=== PATIENT | female | born 1990 | race Caucasian/White ===

== ENCOUNTER 2017-10-12 12:33 | Observation (INO) | payer BC ==
--- NOTE | 2017-10-12 14:53 | GHP ---
[f rep st] HISTORY AND PHYSICAL DATE OF ADMISSION: 10/12/2017 ADMITTING DIAGNOSES: 1. Intrauterine at 37 weeks. 2. Premature rupture of membranes. HISTORY OF PRESENT ILLNESS: Kailey is a 26-year-old 2, para 1-0-0-1 at 37 weeks with an estimated due date 11/01/2017, by last menstrual period 01/20/2017, consistent with first trimester ultrasound at 7 weeks. The patient presents to the hospital with complaints of leakage of fluid noted a round 5 o' clock this morning. States fluid is clear without an odor. She continues to have leakage of fluid. Denies any bleeding. The patient denies any cramping or contractions earlier today and no since ambulating for the last 2 hours has noticed some painful contractions. States there is good movement. The patient has good care at [facility], and presented in her first trimester. is pretty much uncomplicated. She has a paternal cousin with down syndrome, but had normal genetic screening results. Varicella is non-immune. She did receive TDAP in the . GBS culture is negative. OBSTETRICAL HISTORY: In July of 2014, delivered a viable female at 40 weeks 2 days, via spontaneous vaginal delivery, weighing 3,612 g. FRICKERTRON CHECKER HISTORY: The patient has history of oral contraceptive pill use in the past. She has a history of abnormal Pap smear about 8 years ago which was mildly abnormal, required no followup treatments. She did have a negative Pap smear as well as chlamydia and gonorrhea cultures in March 2017. The patient denies a history of any exposure to sexually transmitted diseases. CURRENT MEDICATIONS: vitamin. ALLERGIES: No known drug allergies. PAST MEDICAL HISTORY: Significant for grand mal seizures in childhood between age 6 and 11, none since age 11. PAST SURGICAL HISTORY: Significant for tonsillectomy and wisdom teeth removal. FAMILY HISTORY: Paternal grandfather due to heart disease. Brother with testicular cancer. Sister with seizure disorder during childhood and paternal cousin with Down syndrome. SOCIAL HISTORY: The patient lives with her and their daughter. 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 Denies any alcohol, tobacco, or illicit drug use. REVIEW OF SYSTEMS: Ten-point review of systems is negative. Pertinent positives noted in HPI. LABS: Blood type A positive, antibody negative. RPR nonreactive. Rubella immune. Hepatitis B surface antigen negative. HIV negative. Trio screen negative December 2013. Innatal screen negative. Single AFP negative. H and H 13.2 and 37.6. One-hour Glucola 97. GBS culture is negative. PHYSICAL EXAMINATION: VITAL SIGNS: On admission vital signs are stable, patient is afebrile. GENERAL: The patient is alert and oriented x3. Well- nourished, well-developed female, no apparent distress. CARDIOVASCULAR: Regular rate and rhythm. LUNGS: Clear to auscultation bilaterally. ABDOMEN: Gravid, soft, nontender, nondistended. PELVIC: On exam, patient is found to be 1-2 cm, 70% effaced, -3 station, posterior, cephalic. Patient was seen on L& D about 3 hours ago and Amnisure was noted to be positive and she was 1 cm dilated, very posterior. heart tones are Category 1, with baseline of 130 beats per minute. Positive accelerations, no decelerations, moderate variability. There are irregular contractions on toco. ASSESSMENT/PLAN: Patient is a 26-year-old 2, para 1-0-0-1 at 37 weeks who presents with premature rupture of membranes. 1. Admit to labor and delivery for expectant management. 2. Will have patient continue to ambulate and if no regular contractions or cervical change, will start Pitocin per protocol. 3. Group B Strep is negative, no prophylactic antibiotics are needed. 4. Patient is afebrile at this time, ruptured x 13 hours now. Will continue to monitor closely. /[id number]/MODL MTDD
== END 2017-10-12 13:53 | disposition home or self-care (01) ==
LOC: FLD 12:33
PROVIDERS: ADMIT Obstetrics & Gynecology; ATTEND Obstetrics & Gynecology
DX: O42.92 Full-term premature rupture of membranes, unspecified as to length of time between rupture and onset of labor (principal); Z3A.37 37 weeks gestation of pregnancy
CPT/HCPCS: 59025; G0378

== ENCOUNTER 2017-10-12 17:04 | Inpatient (IN) | payer BC ==
[2017-10-12] MEDS ORDERED: LIDOCAINE 1% 300 MG/30 ML SDV SC PRN (18:12)
[2017-10-12] MEDS ORDERED: TERBUTALINE SULFATE 1 MG/ML VIAL IV PRN (18:12)
[2017-10-12] MEDS ORDERED: OLIVE OIL 118 ML BTL MISC PRN (18:12)
[2017-10-12] MEDS ORDERED: EPSOM SALT 454 GM TP PRN (18:12)
[2017-10-12] MEDS ORDERED: MISOPROSTOL 200 MCG TAB PO PRN (18:12)
[2017-10-12] MEDS ORDERED: OXYTOCIN/RINGERS LACTATE 1,000 ML IV PRN (18:12)
[2017-10-12] MEDS ORDERED: AMMONIA AROMATIC 1 EACH AMP IH PRN (18:12)
[2017-10-12] MEDS ORDERED: IBUPROFEN 600 MG TAB PO PRN (18:12)
[2017-10-12] MEDS ORDERED: LR 500 ML IV PRN (18:13)
[2017-10-12] MEDS ORDERED: LIDOCAINE 1% 300 MG/30 ML SDV ONE (18:18)
[2017-10-12] MEDS ORDERED: OLIVE OIL 118 ML BTL ONE (18:18)
[2017-10-12] MEDS ORDERED: OXYTOCIN 10 UNIT/ML VIAL ONE (18:19)
[2017-10-12] MEDS ORDERED: AMMONIA AROMATIC 1 EACH AMP IH ONE (18:19)
[2017-10-12] MEDS ORDERED: MISOPROSTOL 200 MCG TAB ONE (18:19)
[2017-10-12] MEDS ORDERED: TERBUTALINE SULFATE 1 MG/ML VIAL ONE (18:19)
[2017-10-12] MEDS ORDERED: OXYTOCIN/RINGERS LACTATE 500 ML IV SCH (18:30)
[2017-10-12 19:57] LABS: PLATELET COUNT 172 10^3/uL (150-400)
[2017-10-12] MEDS: LR 1,000 ML IV PRN ×2 (20:27→21:10)
[2017-10-12] MEDS ORDERED: PHENYLEPHRINE HCL 100 MCG/ML SYR ONE (20:57)
[2017-10-12] MEDS ORDERED: fentaNYL 100 MCG/2 ML INJ ONE (20:57)
[2017-10-12] MEDS ORDERED: BUPIVACAINE 0.25% 30 ML SDV ONE (20:57)
[2017-10-12] MEDS ORDERED: fentaNYL 200 MCG, BUPIVACAINE 0.5% 20 ML in NS 100 ML EP SCH (21:00)
--- NOTE | 2017-10-12 21:33 | PREANESOB ---
Obstetric Pre-Anesthesia Info - General Info Proposed Procedure: PCEA : 2 Para: 2 RICKEY: 11/01/17 Gestational Age: 37 week(s) and 1 day(s) - Info Status: Full Term - Labor Status Cervical Dilation per last OB SVE: 2 Indications for Labor Analgesia: Pain Control Labor Epidural: Proposed Anesthesia Allergies/Adverse Reactions: Allergy/AdvReac Type Severity Reaction Status Date / Time No Known Allergies Allergy Unverified 10/12/17 19:27 Home Medications: Medication Instructions Recorded Docusate Sodium [Colace 100 MG (*)] 100 mg PO BID PRN #0 cap 08/03/14 Ibuprofen [Motrin (*)] 600 mg PO Q6 PRN #0 tab 08/03/14 Vit27&Calcium/Iron/FA 2 10/12/17 [] Visit Medications: Generic Name Dose Route Start Last Admin Trade Name Freq PRN Reason Stop Dose Admin Ammonia (Aromatic Spirit) 1 each 10/12/17 18:12 Ammonia Aromatic IH 10/22/17 18:11 ONCE PRN Fainting Lactated Ringer's 1,000 mls @ 0 mls/hr 10/12/17 18:12 10/12/17 21:10 Lr IV 10/13/17 18:11 1,000 mls PRN PRN Administration SEE PROTOCOL CONDITIONS Protocol Per Protocol Lactated Ringer's 500 mls @ 500 mls/hr 10/12/17 18:13 Lr IV 10/13/17 18:13 PRN PRN Maternal Hypotension Oxytocin/Lactated Ringer's 1,000 mls @ 2 mls/hr 10/12/17 18:12 Pitocin 20 Units/Lr (Premix) IV PRN PRN Post bleeding Oxytocin/Lactated Ringer's 500 mls @ 0 mls/hr 10/12/17 18:30 Pitocin 30 Units/Lr (Premix) IV 04/10/18 18:29 CONT ANA Protocol Per Protocol Fentanyl 200 mcg/ Bupivacaine 100 mls @ 0 mls/hr 10/12/17 21:00 10/12/17 21: 10 HCl 20 ml/ Sodium Chloride EP 10/22/17 20:59 100 mls CONT ANA Administration Protocol As Directed Ibuprofen 600 mg 10/12/17 18:12 Motrin PO 04/10/18 18:11 Q6HRS PRN post , inflammation Lidocaine HCl 300 mg 10/12/17 18:12 Lidocaine Hcl 1% SC 04/10/18 18:11 ONCE PRN episiotomy Magnesium Sulfate 454 gm 10/12/17 18:12 Epsom Salt TP 04/10/18 18:11 Q1H PRN perineal discomfort Misoprostol 800 - 1,000 mcg 10/12/17 18:12 Cytotec PO 04/10/18 18:11 ONCE PRN Vaginal Atony/Bleeding [place] Oil 118 ml 10/12/17 18:12 Sweet Oil MISC 04/10/18 18:11 ONCE PRN perineal massage Terbutaline Sulfate 0.25 mg 10/12/17 18:12 Brethine IV 04/10/18 18:11 ONCE PRN Tachysystole Discontinued Medications Generic Name Dose Route Start Last Admin Trade Name Freq PRN Reason Stop Dose Admin Ammonia (Aromatic Spirit) Confirm 10/12/17 18:19 Ammonia Aromatic Administered 10/12/17 18:20 Dose 1 each IH .STK-MED ONE Bupivacaine HCl Confirm 10/12/17 20:57 Sensorcaine 0.25% Sdv Administered 10/12/17 20:58 Dose 30 ml .ROUTE .STK-MED ONE Fentanyl Confirm 10/12/17 20:57 Sublimaze Administered 10/12/17 20:58 Dose 100 mcg .ROUTE .STK-MED ONE Lidocaine HCl Confirm 10/12/17 18:18 Lidocaine Hcl 1% Administered 10/12/17 18:19 Dose 300 mg .ROUTE .STK-MED ONE Misoprostol Confirm 10/12/17 18:19 Cytotec Administered 10/12/17 18:20 Dose 1,000 mcg .ROUTE .STK-MED ONE [place] Oil Confirm 10/12/17 18:18 Sweet Oil Administered 10/12/17 18:19 Dose 118 ml .ROUTE .STK-MED ONE Oxytocin Confirm 10/12/17 18:19 Pitocin Administered 10/12/17 18:20 Dose 40 unit .ROUTE .STK-MED ONE Phenylephrine HCl Confirm 10/12/17 20:57 Neosynephrine Administered 10/12/17 20:58 Dose 1,000 mcg .ROUTE .STK-MED ONE Terbutaline Sulfate Confirm 10/12/17 18:19 Brethine Administered 10/12/17 18:20 Dose 1 mg .ROUTE .STK-MED ONE - Anesthesia History Anesthesia & Operative History: No Prior Problems (Prior epidural without diff) - Vital Signs Height/Weight (Nursing): Height 170.18 cm Weight 71.668 kg - Focused Exam Neck exam: FROM Mallampati Score: Class 1 Mouth exam: normal dental/mouth exam Pulmonary: no respiratory distress Cardiovascular: regular rate and rhythym Labs: 10/12/17 19:44 Patient ABO/Rh A POSITIVE 10/12/17 19:44 - Plan Anesthetic Plan: PCEA Consent Signed and on Chart: Yes
--- NOTE | 2017-10-12 21:36 | POSTANESTH ---
Post Anesthetic Evaluation Cardiovascular Status: Similar to Pre-Op Cond Respiratory Status: Similar to Pre-op Cond. Level of Consciousness/Mental Status: Can Participate in Eval Pain Control: Adequate, Prn Tx Ordered Nausea/Vomiting Control: Adequate, Prn Tx Ordered Complications Possibly Related to Anesthesia: None Noted (Post epi placement. Procedure well tolerated with good pain control and PCEA stsarted)
[2017-10-12] MEDS ORDERED: LR 500 ML IV SCH (22:00)
[2017-10-13] MEDS ORDERED: ONDANSETRON 4 MG/2 ML VIAL IVP PRN (00:28)
[2017-10-13] MEDS ORDERED: SIMETHICONE 80 MG TAB CHEW PO PRN (02:00)
[2017-10-13] MEDS ORDERED: HYDROCORTISONE 0.5% CREAM TP PRN (02:00)
[2017-10-13] MEDS ORDERED: HYDROCODONE/APAP 5/325 TAB PO PRN (02:00)
--- NOTE | 2017-10-13 02:05 | OBDEL ---
Info Type: Vaginal Presentation at Delivery: Vertex L&D Analgesia/Anesthesia Type: Epidural GBS+: No Intrapartum Medications: Generic Name Dose Route Start Last Admin Trade Name Freq PRN Reason Stop Dose Admin Lactated Ringer's 1,000 mls @ 0 mls/hr 10/12/17 18:12 10/12/17 21:10 Lr IV 10/13/17 18:11 1,000 mls PRN PRN Administration SEE PROTOCOL CONDITIONS Protocol Per Protocol Oxytocin/Lactated Ringer's 500 mls @ 0 mls/hr 10/12/17 18:30 10/12/17 22:14 Pitocin 30 Units/Lr (Premix) IV 04/10/18 18:29 500 mls CONT ANA Administration Protocol Per Protocol Fentanyl 200 mcg/ Bupivacaine 100 mls @ 0 mls/hr 10/12/17 21:00 10/12/17 21: 10 HCl 20 ml/ Sodium Chloride EP 10/22/17 20:59 100 mls CONT ANA Administration Protocol As Directed - Hospital Course Intrapartum: 10/13/17 02:02 IUP @ 37 1/7 wks with PROM, ruptured > 12 hours, augmented with Pitocin; GBS neg. Indications for Delivery: SROM (PROM) Vaginal Delivery - Delivery Provider Delivery Physician/CNM: Debby Moses - Labor and Delivery Onset of Contractions Date: 10/12/17 Onset of Contractions Time: 15:30 Onset of Contractions Type: Augmented Rupture of Membranes Date: 10/12/17 Rupture of Membranes Time: 05:00 Rupture of Membranes Type: Premature Amniotic Fluid Color: Clear Dilation Complete Date: 10/12/17 Dilation Complete Time: 00:56 Placenta Delivery Date: 10/13/17 Placenta Delivery Time: 01:46 (Cord avulsed and manually assisted removal of placenta at cervix; bedside u/s confirmed no retained placenta) Total Hours of Labor: 10 Laceration: Other (Specify) (perineum intact) Vaginal Sponge Count Correct: Yes Vaginal Needle Count Correct: Yes Vaginal Sweep Performed: Yes EBL: 300 cc Delivery Events: None - Medications Labor Augmentation/Induction Methods Used: Pitocin Labor Augmentation/Induction Indication: Inadequate Ctx Strength (PROM > 12 hours) [place] Data RICKEY: 11/01/17 Gestational Age: 37 week(s) and 2 day(s) Vásquez Delivery Date: 04/30/18 Delivery Time: 01:38 Sex of : Male ("Shakir Donovan") Score (1 Min): 9 Score (5 Min): 9 ICD10 Worksheet Patient Problems: Problems Problem Status Onset (spontaneous vaginal delivery) Acute PROM with onset of labor within 24 hours, delivered, [facility] Acute
[2017-10-13] MEDS: IBUPROFEN 600 MG TAB PO PRN ×3 (08:46→21:03)
--- NOTE | 2017-10-13 10:13 | OBPP ---
Progress Note Assessment/Plan: Assessment: 26 y/o PPD #1 s/p doing well, Plan: Routine PPC, support. D/c home tomorrow. 10/13/17 10:12 Subjective/ Course: 10/13/17 10:10 Pt is doing well today. She had significant cramping, much better now after Ibuprofen. She is ambulating and voiding well and has min lochia. Breast feeding is going well and baby is doing well. Objective: 10/12/17 19:44 Patient ABO/Rh A POSITIVE 10/12/17 19:44 Temp Pulse Resp BP Pulse Ox 37.1 C 65 16 114/55 L 10/13/17 05:03 10/13/17 05:03 10/13/17 05:03 10/13/17 05:03 Uterine Position/Fundal Height: Umbilicus -3 Uterine Tone: Firm Physical Exam - Physical Exam General Appearance: alert, no apparent distress Neck: non-tender, full range of motion, supple Respiratory: chest non-tender, lungs clear, normal breath sounds Cardiac/Chest: regular rate, rhythm Abdomen: normal bowel sounds Extremities: swelling (no), Citlali's sign (neg)
[2017-10-13] MEDS: DOCUSATE SODIUM 100 MG CAP PO PRN ×2 (12:00→21:03)
[2017-10-14] MEDS: IBUPROFEN 600 MG TAB PO PRN (05:26)
--- NOTE | 2017-10-14 09:14 | POSTANESTH ---
Post Anesthetic Evaluation Cardiovascular Status: Normal, Stable Respiratory Status: Normal, Stable Level of Consciousness/Mental Status: Can Participate in Eval, Alert and Oriented Complications Possibly Related to Anesthesia: None Noted (Pt denies RODRIGUEZ, back pain, point tenderness on back at epidural site. Pt ambulating well.)
[2017-10-14] MEDS: DOCUSATE SODIUM 100 MG CAP PO PRN (09:33)
--- NOTE | 2017-10-14 09:43 | OBGCSDC ---
General Delivery Information - General Info : 2 Para: 2 Abortions: 0 Type: Vaginal L&D Analgesia/Anesthesia Type: Epidural, Nitrous Admission Date: 10/12/17 Labs: Patient ABO/Rh A POSITIVE 10/12/17 19:44 Hct 38.6 % (38.0-47.0) 10/12/17 19:44 - Hospital Course Intrapartum: 10/13/17 02:02 IUP @ 37 1/7 wks with PROM, ruptured > 12 hours, augmented with Pitocin; GBS neg. : 10/13/17 10:10 Pt is doing well today. She had significant cramping, much better now after Ibuprofen. She is ambulating and voiding well and has min lochia. Breast feeding is going well and baby is doing well. 10/14/17 09:38 S) Pt doing well, reports min pain and bleeding. she is ambulating and voiding without difficulty. She is . She desires discharge home today. O) VSS, afebrile constitutional: WNWF, A&Ox3 HEENT: normocephalic, atraumatic, supple Heart: RRR, No murmur Chest: CTA-B Abdomen: Soft, nontender Uterus: Firm at U-2 Lochia: Minimal rubra Perineum: Intact, healing well Extremities: Trace edema, and negative Citlali's sign Neuro: Grossly normal A) 26 year-old S/P PPD#1 going well P) Discharge home today Continue Pelvic rest x6wks Plans Mirena IUD for control Discussed danger signs (infection, preeclampsia, depression, heavy bleeding, etc) RTO in 4/6 weeks Vaginal - Delivery Provider Delivery Physician/CNM: Debby Moses - Diagnosis Labor: Augmented Rupture of Membranes Type: Premature Amniotic Fluid Color: Clear Laceration: Other (Specify) (perineum intact) Delivery Events: None - Delivery EBL: 300 cc [place] Data RICKEY: 11/01/17 Gestational Age: 37 week(s) and 3 day(s) Vásquez Delivery Date: 10/13/17 Delivery Time: 01:38 Sex of : Male [place] Weight (gm): 3224 g Score (1 Min): 9 Score (5 Min): 9 Discharge Information - Discharge Information Prescriptions: Ibuprofen [Motrin (*)] 600 mg PO Q6HRS PRN #30 tab PRN Reason: Pain, Mild Docusate Sodium [Colace 100 MG (*)] 100 mg PO BID PRN #60 cap PRN Reason: Constipation Condition: Good Instruction/Follow Up: Four Weeks, Six Weeks
[2017-10-14 10:15] VITALS: BP 111/70
== END 2017-10-14 12:00 | disposition home or self-care (01) | DRG 767 ==
LOC: FLD 17:04 → FOB 10-13 12:13
PROVIDERS: ADMIT Obstetrics & Gynecology; ATTEND Obstetrics & Gynecology
PROC: 3E033VJ Introduction of Other Hormone into Peripheral Vein, Percutaneous Approach (ICD-10-PCS; 2017-10-12)
PROC: 10E0XZZ Delivery of Products of Conception, External Approach (ICD-10-PCS; principal; 2017-10-13)
PROC: 10D17Z9 Manual Extraction of Products of Conception, Retained, Via Natural or Artificial Opening (ICD-10-PCS; principal; 2017-10-13)
DX: O42.02 Full-term premature rupture of membranes, onset of labor within 24 hours of rupture (principal); O69.89X0 Labor and delivery complicated by other cord complications, not applicable or unspecified; Z3A.37 37 weeks gestation of pregnancy; Z37.0 Single live birth
CPT/HCPCS: J2370; J2405; J2590; J3010; J3105